=== PATIENT | male | born 1955 | race Two or more races ===

== ENCOUNTER 2024-08-30 10:04 | Inpatient (IN) | payer OTHER, MEDICAID ==
[~2024-08-30] VITALS: Ht 180.3 cm; Wt 65.4 kg
[2024-08-30] MEDS: cloNIDine HCL 0.1 MG TAB PO ONE (10:28)
--- NOTE | 2024-08-30 10:34 | ED.PDOC ---
History of Present Illness HPI Comments 69 y/o M, with a Hx of HTN and left-ankle Sx, presents with c/o left-arm and ankle swelling, today. Patient endorses on unprovoked onset of symptoms that began with left ankle swelling 1x week ago and left arm swelling last night, with no prior Hx of in the past. He endorses on being uncertain whether he was bitten by a venomous insect or exposure to an unknown allergen along with denying any recent trauma or injuries. He denies any numbness, pain, weakness, tingling, fever, chills, or other associated symptoms or modifiers at this time. Chief Complaint: Extremity Swelling Time Seen by MD: 10:20 Primary Care Provider: NONE Reviewed Notes: Nurses Notes, Medications, Allergies Allergies: Coded Allergies: NO KNOWN ALLERGIES (Unverified , 08/30/24) Information Source: Patient Mode of Arrival: Ambulatory Severity: Moderate Timing: Hours Duration: Since onset Prehospital treatment: None Past Medical History PAST MEDICAL HISTORY: HTN Surgical History (Other): left-ankle Sx 20 years ago Family History Family History: Unknown Social History Smoker: Cigarettes Alcohol: Occasionally Drugs: Denies Drug Use Lives In: Home Constitutional: denies: chills, diaphoresis, fatigue, fever, malaise, sweats, weakness, others EENTM: denies: blurred vision, double vision, ear bleeding, ear discharge, ear drainage, ear pain, ear ringing, eye pain, eye redness, hearing loss, mouth pain, mouth swelling, nasal discharge, nose bleeding, nose congestion, nose pain, photophobia, tearing, throat pain, throat swelling, voice changes, others Respiratory: denies: cough, hemoptysis, orthopnea, SOB at rest, shortness of breath, SOB with excertion, stridor, wheezing, others Cardiovascular: denies: chest pain, dizzy spells, diaphoresis, Dyspnea on exertion, edema, irregular heart beat, left arm pain, lightheadedness, palpitations, PND, syncope, others Gastrointestinal: denies: abdomen distended, abdominal pain, blood streaked bowels, constipated, diarrhea, dysphagia, difficulty swallowing, hematemesis, melena, nausea, poor appetite, poor fluid intake, rectal bleeding, rectal pain, vomiting, others Genitourinary: denies: burning, dysuria, flank pain, frequency, hematuria, incontinence, penile discharge, penile sore, pain, testicle pain, testicle swelling, urgency, others Neurological: denies: dizziness, fainting, headache, left sided numbness, left sided weakness, numbness, paresthesia, pre-existing deficit, right sided numbness, right sided weakness, seizure, speech problems, tingling, tremors, weakness, others Musculoskeletal: reports: others (left arm and ankle swelling); denies: back pain, gout, joint pain, joint swelling, muscle pain, muscle stiffness, neck pain Integumetry: denies: bruises, change in color, change in hair/nails, dryness, laceration, lesions, lumps, rash, wounds, others Allergic/Immunocompromised: denies: Difficulty Healing, Frequent Infections, Hives, Itching, others Hematologic/Lymphatic: denies: anemia, blood clots, easy bleeding, easy bruising, swollen glands, others Endocrine: denies: excessive hunger, excessive sweating, excessive thirst, excessive urination, flushing, intolerance to cold, intolerance to heat, unexplained weight gain, unexplained weight loss, others Psychiatric: denies: anxiety, bipolar disorder, depression, hopeless, panic disorder, schizophrenia, sleepless, suicidal, others All Other Systems: Reviewed and Negative Physical Exam General Appearance: Mild Distress HEENT: Normal ENT Inspection, Pharynx Normal, TMs Normal Neck: Full Range of Motion, Non-Tender, Normal, Normal Inspection Respiratory: Chest Non-Tender, Lungs Clear, No Accessory Muscle Use, No Respiratory Distress, Normal Breath Sounds Cardiovascular: No Edema, No JVD, No Murmur, No Gallop, Normal Peripheral Pulses, Regular Rate/Rhythm Breast Exam: Deferred Gastrointestinal: No Organomegaly, Non Tender, No Pulsatile Mass, Normal Bowel Sounds, Soft Genitalia: Deferred Pelvic: Deferred Rectal: Deferred Extremities: No calf tenderness, Normal capillary refill, No pedal edema Musculoskeletal : Location: Left Extremity Location: Arm Apperance: Swelling, Limited ROM, Tenderness: Moderate Neurologic: Alert, integration director II-XII nml as Tested, No Motor Deficits, Normal Affect, Normal Mood, No Sensory Deficits Cerebellar Function: Normal Reflexes: Normal Skin: Dry, Normal Color, Warm Lymphatic: No Adenopathy Was a procedure done? Was a procedure done?: No Differential Dx Considerations may include: left upper DVT, left lower DVT, cellulitis, dermatitis, insect envenomation X-Ray, Labs, Meds, VS Vital Signs Date Time Temp Pulse Resp B/P (MAP) Pulse Ox O2 Delivery O2 Flow Rate FiO2 08/30/24 11:42 97.5 62 16 123/78 (93) 99 97.5 08/30/24 11:28 123/78 08/30/24 10:28 168/109 08/30/24 10:15 Room Air* 0 21 08/30/24 10:06 98.2 64 20 168/109 (128) 99 177/108 (131) Lab Test 08/30/24 10:35 08/30/24 10:30 Range/Units White Blood Count 10.4 4.4-10.8 10^3/uL Red Blood Count 4.20 L 4.5-5.90 10^6/uL Hemoglobin 13.6 13.5-17.5 g/dL Hematocrit 41.0 41.0-53.0 % Mean Corpuscular Volume 97.6 80.0-100.0 fL Mean Corpuscular Hemoglobin 32.3 H 28.0-32.0 pg Mean Corpuscular Hemoglobin Concent 33.1 32.0-36.0 g/dL Red Cell Distribution Width 13.9 11.8-14.3 % Platelet Count 322 140-450 10^3/uL Mean Platelet Volume 7.2 6.9-10.8 fL Neutrophils (%) (Auto) 66.6 37.0-80.0 % Lymphocytes (%) (Auto) 20.4 10.0-50.0 % Monocytes (%) (Auto) 12.5 H 0.0-12.0 % Eosinophils (%) (Auto) 0.3 0.0-7.0 % Basophils (%) (Auto) 0.2 0.0-2.0 % Neutrophils # (Auto) 7.0 1.6-8.6 10 ^3/uL Lymphocytes # (Auto) 2.1 0.4-5.4 10 ^3/uL Monocytes # (Auto) 1.3 0-1.3 10 ^3/uL Eosinophils # (Auto) 0 0-0.8 10 ^3/uL Basophils # (Auto) 0 0-0.2 10 ^3/uL Nucleated Red Blood Cells 0.1 % Erythrocyte Sedimentation Rate 23 H 0-20 mm/hr Sodium Level 138 136-145 mmol/L Potassium Level 3.9 3.5-5.1 mmol/L Chloride Level 106 98-107 mmol/L Carbon Dioxide Level 25 20-31 mmol/L Anion Gap 7 5-15 Blood Urea Nitrogen 15 9-23 mg/dL Creatinine 0.91 0.700-1.30 mg/dL Glomerular Filtration Rate Calc 91 >90 mL/min BUN/Creatinine Ratio 16.5 10.0-20.0 Serum Glucose 92 74-106 mg/dL Calcium Level 10.2 8.7-10.4 mg/dL Urine Color Light-yellow Yellow Urine Clarity Clear Clear Urine pH 6.0 5.0-9.0 Urine Specific [place] 1.018 1.001-1.035 Urine Protein Negative Negative Urine Ketones Negative Negative Urine Blood Negative Negative /uL Urine Nitrite Negative Negative Urine Bilirubin Negative Negative Urine Urobilinogen Normal Negative mg/dL Urine Leukocyte Esterase Negative Negative /uL Urine RBC 2 0 - 3 /hpf Urine WBC 2 0 - 3 /hpf Urine Squamous Epithelial Cells None seen <5 /hpf Urine Bacteria None seen None Seen /hpf Urine Glucose Normal Normal mg/dL Current Medications Medications (Trade) Dose Ordered Sig/[place] Route Start Time Stop Time Status Last Admin Clonidine HCl (Catapres Tablet) 0.2 mg ONCE ONCE PO 08/30/24 10:30 08/30/24 10:31 DC 08/30/24 10:28 PROCEDURE(s): LUDVT - LT Upper DVT Impression: No venous thrombus identified in the LEFT upper extremity vessels evaluated above. At this time, the patient was given clonidine p.o. for the accelerated hypertension The urine test is negative The CBC and chemistry panel are within normal limits The patient is being admitted to the hospitalist We are unaware of why this patient's arm is experiencing significant swelling. Images Reviewed?: Images reviewed and evaluated by me Time of 1ST Reevaluation: 10:50 Reevaluation 1ST: Unchanged Patient Education/Counseling: Diagnosis, Treatment, Prognosis Family Education/Counseling: No Family Present Departure 1 Departure Time of Disposition: 12:24 Impression: Primary Impression: Left arm swelling Additional Impressions: Elevated erythrocyte sedimentation rate Accelerated hypertension Disposition: ADMITTED INPATIENT Admit to: Med Surg Condition: Fair Critical Care Note Critical Care Time?: No Stability Stability form required: Yes Unstable for transfer: ED Physician Assesment (Clinical assesment) Heart Score Heart Score: Heart Score Response (Comments) Value History N/A 0 EKG N/A 0 Age N/A 0 Risk Factors N/A 0 Troponin N/A 0 Total 0 I personally scribed for LOLITA MICHAEL MD ([email or web address]) on 08/30/24 at 10:34. Electronically submitted by Juan Kohler ([email or web address]). I personally scribed for LOLITA MICHAEL MD ([email or web address]) on 08/30/24 at 11:19. Electronically submitted by Juan Kohler ([email or web address]). LOLITA MICHAEL MD Aug 30, 2024 10:34
[2024-08-30 10:50] LABS: Basophils # (auto) 0 10 ^3/uL (0-0.2); Basophils % (auto) 0.2 % (0.0-2.0); Eosinophils # (auto) 0 10 ^3/uL (0-0.8); Eosinophils % (auto) 0.3 % (0.0-7.0); Hemoglobin 13.6 g/dL (13.5-17.5); Lymphocytes # (auto) 2.1 10 ^3/uL (0.4-5.4); Lymphocytes % (auto) 20.4 % (10.0-50.0); Mean Corpuscular Hemoglobin 32.3 pg (28.0-32.0); Mean Corpuscular Hgb Conc. 33.1 g/dL (32.0-36.0); Mean Corpuscular Volume 97.6 fL (80.0-100.0); Monocytes # (auto) 1.3 10 ^3/uL (0-1.3); Monocytes % (auto) 12.5 % (0.0-12.0); Neutrophils % (auto) 66.6 % (37.0-80.0); Nucleated Red Blood Cells % 0.1 %; Platelet Count (auto) 322 10^3/uL (140-450); Red Cell Distribution Width 13.9 % (11.8-14.3); White Blood Cell 10.4 10^3/uL (4.4-10.8)
[2024-08-30 10:58] LABS: Chloride 106 mmol/L (98-107); Potassium 3.9 mmol/L (3.5-5.1); Sodium 138 mmol/L (136-145)
[2024-08-30 10:59] LABS: Anion Gap 7 (5-15); Calcium 10.2 mg/dL (8.7-10.4); Carbon Dioxide 25 mmol/L (20-31)
[2024-08-30 11:04] LABS: BUN/Creatinine Ratio 16.5 (10.0-20.0); Blood Urea Nitrogen 15 mg/dL (9-23); Glucose 92 mg/dL (74-106)
--- NOTE | 2024-08-30 11:07 | DVH ---
LEFT Upper Extremity Venous Duplex Clinical History: left arm swelling Comparison: None Findings: Duplex Doppler evaluation of the venous system of the LEFT lower neck and upper extremity including c olor Doppler and spectral/pulsed waveform analysis was performed. The internal jugular vein demonstrates appropriate compressibility and waveform variability. The subclavian vein is patent on color Doppler evaluation without intraluminal thrombus and demonstra hayden waveform variability. The visualized portion of the brachiocephalic vein is patent on color Doppler evaluation without intr aluminal thrombus and demonstrates waveform variability. The axillary vein demonstrates appropriate compressibility and waveform variability. The brachial veins demonstrate appropriate compressibility and patency on Doppler evaluation. The basilic vein demonstrates appropriate compressibility and patency on Doppler evaluation. The cephalic vein demonstrates appropriate compressibility and patency on Doppler evaluation. Impression: No venous thrombus identified in the LEFT upper extremity vessels evaluated above. If clinical concern/symptoms persist or worsen, short-interval follow-up study is suggested.
[2024-08-30 11:37] LABS: Urine Bacteria None Seen /hpf (None Seen)
[2024-08-30 11:46] LABS: Erythrocyte Sedimentation Rate 23 mm/hr (0-20)
[2024-08-30 12:14] LABS: Urine Blood Negative /uL (Negative); Urine Clarity Clear (Clear); Urine Color Light-Yellow (Yellow); Urine Protein, UAD Negative (Negative); Urine Specific Gravity 1.018 (1.001-1.035); Urine Squamous Epithelial Cell None Seen /hpf (<5); Urine Urobilinogen Normal (Negative); Urine WBC 2 /hpf (0 - 3)
[2024-08-30] MEDS ORDERED: ACETAMINOPHEN 325 MG TAB PO PRN (19:00)
[2024-08-30] MEDS ORDERED: MORPHINE SULFATE INJ 2 MG/ml SYRG IV PRN ×2 (19:00)
[2024-08-30] MEDS ORDERED: NITROGLYCERIN 0.4 MG SL TAB SL PRN (19:00)
[2024-08-30] MEDS: hydroCHLOROthiazide 25 MG TAB PO ONE (19:45)
--- NOTE | 2024-08-30 20:11 | DVHHPRES ---
History of Present Illness Resident Creating Document: ALESSANDRA PALMER RESIDENT Reason for Visit: Left wrist and Ankle swelling History of Present Illness 61-year-old male patient with past medical history of hypertension, recurrent epistaxis and remote drug abuse (cocaine and methamphetamine use, quit 2 years ago, ongoing marijuana and cigarette use) presenting with left ankle and wrist swelling, being left ankle swelling and pain for the past week and the left wrist swelling since yesterday, the swelling is unprovoked at worsens with the physical activity such weight-bearing on these joints. He describes the pain as moderate in the left ankle and leg and soreness in the left wrist, particularly with movement he is unable to make a fist. The patient denies any recent trauma, fever, chills. He has a history of left wrist injury and left ankle surgery from prior accidents. There are no other associated symptoms, including no systemic complaints or swelling in other joints. Cardiovascular: HTN Musculoskeletal: Osteoarthritis Past Medical History Previous ankle surgery Family History: DM, Hypertension Smoke: <1 pack per day ALCOHOL: occassional Drugs: Marijuana Lives: with Family Domestic Violence: Neg Review of Systems Review of Systems Constitutional: No: Fever, Chills, Sweats, Weakness, Malaise, Other Eyes: No: Pain, Vision change, Conjunctivae inflammation, Eyelid inflammation, Other, Redness ENT: No: Ear pain, Ear discharge, Nose pain, Nose discharge, Nose congestion, Mouth pain, Mouth swelling, Throat pain, Throat swelling, Other Respiratory: No Wheezing, Hemoptysis, Pleuritic Pain, Sputum, Wheezing, Other Cardiovascular: No: Chest Pain, Palpitations, Orthopnea, Paroxysmal Noc. Dyspnea, Edema, Lt Headedness, Other Gastrointestinal: No: Nausea, Vomiting, Abdominal Pain, Diarrhea, Constipation, Melena, Hematochezia, Other Musculoskeletal: Yes: left wrist swelling, left ankle swelling, chronic back pain No: other, neck pain, shoulder pain, arm pain Neurological:; No: Weakness, Numbness, Incoordination, Change in speech, Confusion, Seizures Allergies: Coded Allergies: NO KNOWN ALLERGIES (Unverified , 08/30/24) Medications Current Medications Medications Dose Ordered Sig/Berlin Route Start Time Stop Time Status Last Admin Dose Admin Acetaminophen 650 mg Q6HP PRN PO 08/30/24 19:00 Morphine Sulfate 2 mg Q4HPRN PRN IV 08/30/24 19:00 Nitroglycerin 0.4 mg Q5MINP PRN SL 08/30/24 19:00 Morphine Sulfate 2 mg Q30M PRN IV 08/30/24 19:00 Hydrochlorothiazide 25 mg DAILY PO 08/31/24 10:00 UNV Exam Vital Signs Vital Signs Date Time Temp Pulse Resp B/P (MAP) Pulse Ox O2 Delivery O2 Flow Rate FiO2 08/30/24 18:13 98.1 58 16 158/91 (113) 99 98.1 08/30/24 10:15 Room Air* 0 21 Exam Examination General Appearance: Alert, Oriented X3, Cooperative, No acute distress Respiratory: Clear to auscultation, Normal air movement Cardiovascular: Regular rate, Normal S1, Normal S2 Abdominal: Normal bowel sounds Extremities: edema in the left wrist and left ankle, No cyanosis, normal pulses Skin: dry skin in lower extremities, No rashes, No breakdown Neuro: Normal gait, Normal speech, Strength at 5/5 X4 ext, Normal tone, Sensation intact, Cranial nerves 3-12 NL, Reflexes 2+ Psych/Mental Status: Mental status NL, Mood NL Labs/Xrays Labs Test 08/30/24 10:35 08/30/24 10:30 Range/Units White Blood Count 10.4 4.4-10.8 10^3/uL Red Blood Count 4.20 L 4.5-5.90 10^6/uL Hemoglobin 13.6 13.5-17.5 g/dL Hematocrit 41.0 41.0-53.0 % Mean Corpuscular Volume 97.6 80.0-100.0 fL Mean Corpuscular Hemoglobin 32.3 H 28.0-32.0 pg Mean Corpuscular Hemoglobin Concent 33.1 32.0-36.0 g/dL Red Cell Distribution Width 13.9 11.8-14.3 % Platelet Count 322 140-450 10^3/uL Mean Platelet Volume 7.2 6.9-10.8 fL Neutrophils (%) (Auto) 66.6 37.0-80.0 % Lymphocytes (%) (Auto) 20.4 10.0-50.0 % Monocytes (%) (Auto) 12.5 H 0.0-12.0 % Eosinophils (%) (Auto) 0.3 0.0-7.0 % Basophils (%) (Auto) 0.2 0.0-2.0 % Neutrophils # (Auto) 7.0 1.6-8.6 10 ^3/uL Lymphocytes # (Auto) 2.1 0.4-5.4 10 ^3/uL Monocytes # (Auto) 1.3 0-1.3 10 ^3/uL Eosinophils # (Auto) 0 0-0.8 10 ^3/uL Basophils # (Auto) 0 0-0.2 10 ^3/uL Nucleated Red Blood Cells 0.1 % Erythrocyte Sedimentation Rate 23 H 0-20 mm/hr Sodium Level 138 136-145 mmol/L Potassium Level 3.9 3.5-5.1 mmol/L Chloride Level 106 98-107 mmol/L Carbon Dioxide Level 25 20-31 mmol/L Anion Gap 7 5-15 Blood Urea Nitrogen 15 9-23 mg/dL Creatinine 0.91 0.700-1.30 mg/dL Glomerular Filtration Rate Calc 91 >90 mL/min BUN/Creatinine Ratio 16.5 10.0-20.0 Serum Glucose 92 74-106 mg/dL Calcium Level 10.2 8.7-10.4 mg/dL Urine Color Light-yellow Yellow Urine Clarity Clear Clear Urine pH 6.0 5.0-9.0 Urine Specific [place] 1.018 1.001-1.035 Urine Protein Negative Negative Urine Ketones Negative Negative Urine Blood Negative Negative /uL Urine Nitrite Negative Negative Urine Bilirubin Negative Negative Urine Urobilinogen Normal Negative mg/dL Urine Leukocyte Esterase Negative Negative /uL Urine RBC 2 0 - 3 /hpf Urine WBC 2 0 - 3 /hpf Urine Squamous Epithelial Cells None seen <5 /hpf Urine Bacteria None seen None Seen /hpf Urine Glucose Normal Normal mg/dL Assessment/Plan Assessment/Plan #Left wrist swelling likely due to post-traumatic osteoarthritis, rule out acute gout attack or pseudogout #Upper extremity DVT was ruled out - Admit to telemetry - left wrist x-ray 3 view - left ankle x-ray 3 view - ibuprofen 600 mg PRN - uric acid levels #Hypertensive urgency -clonidine once -hydrochlorothiazide 25 mg p.o. daily #Nicotine dependency -smoking cessation counseling -consider start nicotine patches #History of drug abuse #Methamphetamine use #Cocaine use -He quit 2 years ago -UDS Case discussed with goals of care discussed with the patient for 31 minutes code status: full code Plan discussed with: Patient My Orders Orders - ALESSANDRA PALMER RESIDENT Procedure Category Date Status Time Admit ADMIT 08/30/24 Transmitted 18:59 Allergies JAD 08/30/24 In Process 18:59 Code Status CODE 08/30/24 Transmitted 18:59 Complete Blood Count LAB 08/31/24 Verified 04:00 Comprehensive LAB 08/31/24 Verified Metabolic Panel 04:00 Npo (Nothing By DIET 08/31/24 Transmitted Mouth) Diet Breakfast Acetaminophen Tablet PHA 08/30/24 In Process (Tylenol Tablet) 19:00 Morphine Sulfate PHA 08/30/24 In Process Injection 19:00 Nitroglycerin PHA 08/30/24 In Process Sublingual (Ntrostat 19:00 Morphine Sulfate PHA 08/30/24 In Process Injection 19:00 Oxygen By Nasal RT 08/30/24 Transmitted Cannula 18:59 Stat Ekg For Chest JAD 08/30/24 In Process Pain 18:59 Notify Of Changes [facility] 08/30/24 In Process From Base 18:59 Hydroelectric Plant Electrician For [facility] 08/30/24 In Process 24 Hours 18:59 Emergency Dysrhythmia [facility] 08/30/24 In Process Protocol 18:59 Rhythm Strips Once [facility] 08/30/24 In Process Every Shift 18:59 Drug Screen LAB 08/30/24 Logged 19:08 Thyroid Stimulating LAB 08/30/24 Logged Hormone 19:08 Lactic Acid W/ Reflex LAB 08/30/24 Logged Order 19:08 Lactate Dehydrogenase LAB 08/30/24 Logged 19:08 L Wrist 3+ View Xray XY 08/30/24 Logged 19:40 L Ankle 3 View XY 08/30/24 Logged 19:40 Vitamin B12 LAB 08/30/24 Logged 19:40 Vitamin D 25-Hydroxy LAB 08/30/24 Logged D2 + D3 19:40 Hemoglobin A1c LAB 08/30/24 Logged 19:40 Chest Portable XY 08/30/24 Logged 19:40 Hydrochlorothiazide PHA 08/31/24 Logged Tablet (Hydrochlorot 10:00 Hydrochlorothiazide PHA 08/30/24 Logged Tablet (Hydrochlorot 19:45 C-Reactive Protein LAB 08/30/24 Logged 19:48 Prothrombin Time W/ LAB 08/30/24 Logged INR 19:48 Date of Service: Aug 30, 2024 Billing Provider: NII ORTIZ MD Common Visit Codes: 32811-[id number] INP/OBS CARE (HIGH) Secondary Visit Codes: 41315-[id number] CARE PLAN 30 MINUTES ALESSANDRA PALMER RESIDENT Aug 30, 2024 20:11 NII ORTIZ MD Aug 30, 2024 20:23
[2024-08-30 20:18] LABS: Thyroid Stimulating Hormone 3.63 uIU/mL (0.55-4.78)
--- NOTE | 2024-08-30 20:23 | DVH ---
EXAMINATION: AP portable chest radiograph CLINICAL HISTORY: ro PNA COMPARISON: None TECHNIQUE: AP chest x-ray FINDINGS: Negative AP chest. No dominant consolidations. The costophrenic angles are clear. No sizable pleural effusions or pneumo thorax identified. The cardiomediastinal silhouette appears within normal limits given technique. IMPRESSION: 1. Negative AP chest.
--- NOTE | 2024-08-30 20:23 | DVH ---
CLINICAL INDICATION: r/o severe osteoarthritis TECHNIQUE: 3 radiographic views of the left ankle were obtained. Comparison: None FINDINGS/IMPRESSION: There is no evidence of acute fracture or dislocation. Screw fixation of the medial malleolus The visualized joint space is well maintained. The alignment is anatomical. There is no radiopaque foreign body. Mild ankle soft tissue edema.
--- NOTE | 2024-08-30 20:30 | DVH ---
CLINICAL INDICATION: ro severe osteoarthritis TECHNIQUE: 3 radiographic views of the left wrist were obtained. Comparison: None FINDINGS/IMPRESSION: There is lucency through the distal triquetrum. Correlate for nondisplaced fracture. There appears t o be old fracture deformity of the scaphoid. Moderate degenerative changes of the radiocarpal joint w ith joint space narrowing sclerosis and subchondral cystic changes. There is resorption of the distal ulna. There is volar tilt of the lunate on the lateral view consistent with volar intercalated segmental in stability. Mild wrist and dorsal hand soft tissue edema
[2024-08-30 20:53] LABS: Amphetamine Screen, Urine Neg (NEGATIVE); Barbiturate Scree,Urine Neg (NEGATIVE); Benzodiazephine Screen, Urine Neg (NEGATIVE); Cannabinoid Screen, Urine Pos (NEGATIVE); Cocaine Screen, Urine Neg (NEGATIVE); Opiate Scree,Urine Neg (NEGATIVE); Phencyclidine Screen, Urine Pos (NEGATIVE)
[2024-08-30 21:30] VITALS: BP 159/92; PULSE 57; RESP 20; TEMP 98.8; O2SAT 99
[2024-08-30 23:30] VITALS: PULSE 57; RESP 20; O2SAT 99
[2024-08-31 00:31] LABS: INR 0.99 (0.9-1.15); Prothrombin Time 10.5 sec (9.3-11.8)
[2024-08-31 01:00] VITALS: BP 156/74; PULSE 59; RESP 20; TEMP 98.3; O2SAT 97
[2024-08-31] MEDS: IBUPROFEN 400 MG TAB PO PRN (01:12)
[2024-08-31 05:00] VITALS: BP 143/69; PULSE 82; RESP 19; TEMP 97.5; O2SAT 99
[2024-08-31 08:00] VITALS: PULSE 50; RESP 14; O2SAT 100
[2024-08-31] MEDS: hydroCHLOROthiazide 25 MG TAB PO SCH (08:57)
[2024-08-31 11:09] LABS: Alanine Aminotransferase 18 U/L (7-40); Albumin 4.1 g/dL (3.2-4.8); Alkaline Phosphatase 79 U/L (46-116); Anion Gap 8 (5-15); Aspartate Aminotransferase 16 U/L (13-40); BUN/Creatinine Ratio 13.2 (10.0-20.0); Bilirubin, Total 0.5 mg/dL (0.2-1.0); Blood Urea Nitrogen 12 mg/dL (9-23); Calcium 10.1 mg/dL (8.7-10.4); Carbon Dioxide 26 mmol/L (20-31); Chloride 106 mmol/L (98-107); Sodium 140 mmol/L (136-145); Total Protein 7.1 g/dL (5.7-8.2)
[2024-08-31 11:12] LABS: Basophils # (auto) 0 10 ^3/uL (0-0.2); Basophils % (auto) 0.5 % (0.0-2.0); Eosinophils # (auto) 0.1 10 ^3/uL (0-0.8); Hematocrit 39.3 % (41.0-53.0); Hemoglobin 13.3 g/dL (13.5-17.5); Lymphocytes # (auto) 2.2 10 ^3/uL (0.4-5.4); Mean Corpuscular Hemoglobin 32.7 pg (28.0-32.0); Mean Corpuscular Volume 96.2 fL (80.0-100.0); Monocytes # (auto) 0.5 10 ^3/uL (0-1.3); Monocytes % (auto) 6.9 % (0.0-12.0); Neutrophils # (auto) 4.3 10 ^3/uL (1.6-8.6); Neutrophils % (auto) 59.6 % (37.0-80.0); Nucleated Red Blood Cells % 0.1 %; Platelet Count (auto) 325 10^3/uL (140-450); Red Blood Cells 4.08 10^6/uL (4.5-5.90); Red Cell Distribution Width 13.7 % (11.8-14.3); White Blood Cell 7.2 10^3/uL (4.4-10.8)
[2024-08-31 11:19] LABS: Glucose 120 mg/dL (74-106)
[2024-08-31] MEDS ORDERED: IBUP-1453 PO (12:07)
--- NOTE | 2024-08-31 12:52 | DVHDSRES ---
Discharge Summary Date of Admission Resident Creating Document: ALESSANDRA PALMER RESIDENT Aug 30, 2024 at 18:59 Date of Discharge: Aug 31, 2024 Admitting Diagnosis #Left wrist swelling likely due to post-traumatic osteoarthritis, rule out acute gout attack #Upper extremity DVT Labs/Diagnostic Data: Laboratory Results Test 08/31/24 10:25 08/30/24 23:32 08/30/24 19:40 08/30/24 10:35 White Blood Count 7.2 10^3/uL (4.4-10.8) Red Blood Count 4.08 10^6/uL (4.5-5.90) Hemoglobin 13.3 g/dL (13.5-17.5) Hematocrit 39.3 % (41.0-53.0) Mean Corpuscular Volume 96.2 fL (80.0-100.0) Mean Corpuscular Hemoglobin 32.7 pg (28.0-32.0) Mean Corpuscular Hemoglobin Concent 34.0 g/dL (32.0-36.0) Red Cell Distribution Width 13.7 % (11.8-14.3) Platelet Count 325 10^3/uL (140-450) Mean Platelet Volume 7.9 fL (6.9-10.8) Neutrophils (%) (Auto) 59.6 % (37.0-80.0) Lymphocytes (%) (Auto) 31.0 % (10.0-50.0) Monocytes (%) (Auto) 6.9 % (0.0-12.0) Eosinophils (%) (Auto) 2.0 % (0.0-7.0) Basophils (%) (Auto) 0.5 % (0.0-2.0) Neutrophils # (Auto) 4.3 10 ^3/uL (1.6-8.6) Lymphocytes # (Auto) 2.2 10 ^3/uL (0.4-5.4) Monocytes # (Auto) 0.5 10 ^3/uL (0-1.3) Eosinophils # (Auto) 0.1 10 ^3/uL (0-0.8) Basophils # (Auto) 0 10 ^3/uL (0-0.2) Nucleated Red Blood Cells 0.1 % Sodium Level 140 mmol/L (136-145) Potassium Level 4.0 mmol/L (3.5-5.1) Chloride Level 106 mmol/L (98-107) Carbon Dioxide Level 26 mmol/L (20-31) Anion Gap 8 (5-15) Blood Urea Nitrogen 12 mg/dL (9-23) Creatinine 0.91 mg/dL (0.700-1.30) Glomerular Filtration Rate Calc 91 mL/min (>90) BUN/Creatinine Ratio 13.2 (10.0-20.0) Serum Glucose 120 mg/dL (74-106) Calcium Level 10.1 mg/dL (8.7-10.4) Total Bilirubin 0.5 mg/dL (0.2-1.0) Aspartate Amino Transferase (AST) 16 U/L (13-40) Alanine Aminotransferase (ALT) 18 U/L (7-40) Alkaline Phosphatase 79 U/L (46-116) Total Protein 7.1 g/dL (5.7-8.2) Albumin 4.1 g/dL (3.2-4.8) Prothrombin Time 10.5 sec (9.3-11.8) Prothrombin Time INR 0.99 (0.9-1.15) Vitamin B12 Level 543 pg/mL (211-911) Hemoglobin A1c 5.2 % A1C (<5.7) Lactic Acid Level 1.9 mmol/L (0.4-2.0) Uric Acid 6.2 mg/dL (3.7-9.2) Lactate Dehydrogenase 156 U/L (120-246) C-Reactive Protein High Sensitivity 4.18 mg/dL (<1.0) Thyroid Stimulating Hormone (TSH) 3.63 uIU/mL (0.55-4.78) Erythrocyte Sedimentation Rate 23 mm/hr (0-20) Test 08/30/24 10:30 Urine Color Light-yellow (Yellow) Urine Clarity Clear (Clear) Urine pH 6.0 (5.0-9.0) Urine Specific [place] 1.018 (1.001-1.035) Urine Protein Negative (Negative) Urine Ketones Negative (Negative) Urine Blood Negative /uL (Negative) Urine Nitrite Negative (Negative) Urine Bilirubin Negative (Negative) Urine Urobilinogen Normal mg/dL (Negative) Urine Leukocyte Esterase Negative /uL (Negative) Urine RBC 2 /hpf (0 - 3) Urine WBC 2 /hpf (0 - 3) Urine Squamous Epithelial Cells None seen /hpf (<5) Urine Bacteria None seen /hpf (None Seen) Urine Glucose Normal mg/dL (Normal) Urine Opiates Screen Neg (NEGATIVE) Urine Fentanyl Screen Neg (NEGATIVE) Urine Barbiturates Screen Neg (NEGATIVE) Urine Phencyclidine Screen Pos (NEGATIVE) Urine Amphetamines Screen Neg (NEGATIVE) Urine Benzodiazepines Screen Neg (NEGATIVE) Urine Cocaine Screen Neg (NEGATIVE) Urine Cannabinoids Screen Pos (NEGATIVE) Other Laboratory Tests 08/31/24 10:25 Brief Hx & Hospital Course: HPI The patient is a 69-year-old male with a past medical history significant for hypertension, recurrent epistaxis, and remote substance use (cocaine and methamphetamine, quit two years ago), who presented with left wrist and ankle swelling and pain. He is an active smoker (1 pack/day) and continues to use marijuana. The patient reported that the pain in his left wrist began approximately one week prior, progressively worsening in intensity and interfering with his ability to make a fist. Similarly, the left ankle swelling and pain developed around the same time without a clear provoking event. He described the pain as persistent and exacerbated by movement or weight-bearing, particularly in the left ankle. On arrival, he denied any systemic symptoms, including fever, chills, night sweats, or malaise. He also denied any recent trauma, falls, or injuries involving the left wrist or ankle. The patient reported no pain or swelling in other joints. There was no significant past history of arthritis, gout, or other rheumatologic conditions. His family history is notable for hypertension and diabetes but no known connective tissue disorders. Hospital course: Upon admission, the patient underwent a thorough evaluation, including imaging and laboratory testing, to assess for potential causes of his symptoms. Left wrist X-Ray revealed a non-displaced triquetrum fracture, which is an uncomplicated injury that typically heals with immobilization and conservative management.The patient was managed conservatively for his wrist fracture. A bandage was applied to immobilize the joint, and he was educated on the importance of keeping the wrist immobilized to ensure proper healing.For his left ankle pain and swelling, symptomatic treatment included elevation, rest, and NSAIDs to reduce inflammation. No invasive interventions were necessary as there was no structural damage identified on imaging. He was started on acetaminophen and NSAIDs (e.g., ibuprofen) for pain control. During hospitalization, the patient demonstrated gradual improvement in his symptoms. Swelling in the left ankle decreased, and his wrist pain was well-controlled with analgesics. His vital signs remained stable throughout his stay, and he did not develop any signs of systemic infection or worsening symptoms.he patient received counseling regarding his smoking habits and drug abuse cessation, emphasizing the potential impact of nicotine and drugs. Disposition: Patient stable for dicharge to home. Case discussed with Goals of care discussed with the patient for 44 minutes. Operations or Procedures [place] [id number] Ph: [phone] DIAGNOSTIC IMAGING Diagnostic Imaging Report : [id number] Signed PATIENT: MERY CRUZ ACCT: [id number] UNIT: [id number] : 1955 LOC: ER ROOM / BED: / AGE / SEX: 69 / M ADM STATUS: REG ER SERVICE 1026 ORDERING PHYSICIAN: LOLITA MICHAEL MD PROCEDURE(s): LUDVT - LT Upper DVT REASON: left arm swelling ORDER NUMBER(s): [id number], ACCESSION NUMBER(s): [id number] LEFT Upper Extremity Venous Duplex Clinical History: left arm swelling Comparison: None Findings: Duplex Doppler evaluation of the venous system of the LEFT lower neck and upper extremity including color Doppler and spectral/pulsed waveform analysis was performed. The internal jugular vein demonstrates appropriate compressibility and waveform variability. The subclavian vein is patent on color Doppler evaluation without intraluminal thrombus and demonstrates waveform variability. The visualized portion of the brachiocephalic vein is patent on color Doppler evaluation without intraluminal thrombus and demonstrates waveform variability. The axillary vein demonstrates appropriate compressibility and waveform variability. The brachial veins demonstrate appropriate compressibility and patency on Doppler evaluation. The basilic vein demonstrates appropriate compressibility and patency on Doppler evaluation. The cephalic vein demonstrates appropriate compressibility and patency on Doppler evaluation. Impression: No venous thrombus identified in the LEFT upper extremity vessels evaluated above. If clinical concern/symptoms persist or worsen, short-interval follow-up study is suggested. ATED BY: BENTLEY RODRIGUEZ MD DICTATED DATE/TIME: 08/30/24 1105 SIGNED BY: BENTLEY RODRIGUEZ MD SIGNED DATE/TIME: 08/30/24 1105 CC: [address] [id number] Ph: [phone] DIAGNOSTIC IMAGING Diagnostic Imaging Report : [id number] Signed PATIENT: MERY CRUZ ACCT: [id number] UNIT: [id number] : 1955 LOC: OVERFLOW ROOM / BED: [address] [place] [address] / A AGE / SEX: 69 / M ADM STATUS: ADM IN SERVICE 39 ORDERING PHYSICIAN: ALESSANDRA PALMER RESIDENT PROCEDURE(s): LANKL - L ANKLE 3 VIEW REASON: r/o severe osteoarthritis ORDER NUMBER(s): [id number], ACCESSION NUMBER(s): [id number] CLINICAL INDICATION: r/o severe osteoarthritis TECHNIQUE: 3 radiographic views of the left ankle were obtained. Comparison: None FINDINGS/IMPRESSION: There is no evidence of acute fracture or dislocation. Screw fixation of the medial malleolus The visualized joint space is well maintained. The alignment is anatomical. There is no radiopaque foreign body. Mild ankle soft tissue edema. ATED BY: VIOLETA MARTÍNEZ DO DICTATED DATE/TIME: 08/30/242020 SIGNED BY: VIOLETA MARTÍNEZ DO SIGNED DATE/TIME: 08/30/242020 CC: [place] [id number] Ph: [phone] DIAGNOSTIC IMAGING Diagnostic Imaging Report : [id number] Signed PATIENT: MERY CRUZ ACCT: [id number] UNIT: [id number] : 1955 LOC: OVERFLOW ROOM / BED: [address] [place] [address] A AGE / SEX: 69 / M ADM STATUS: ADM IN SERVICE 39 ORDERING PHYSICIAN: ALESSANDRA PALMER RESIDENT PROCEDURE(s): LWRI - L WRIST 3+ VIEW XRAY REASON: ro severe osteoarthritis ORDER NUMBER(s): [id number], ACCESSION NUMBER(s): [id number] CLINICAL INDICATION: ro severe osteoarthritis TECHNIQUE: 3 radiographic views of the left wrist were obtained. Comparison: None FINDINGS/IMPRESSION: There is lucency through the distal triquetrum. Correlate for nondisplaced fracture. There appears to be old fracture deformity of the scaphoid. Moderate degenerative changes of the radiocarpal joint with joint space narrowing sclerosis and subchondral cystic changes. There is resorption of the distal ulna. There is volar tilt of the lunate on the lateral view consistent with volar intercalated segmental instability. Mild wrist and dorsal hand soft tissue edema ATED BY: VIOLETA MARTÍNEZ DO DICTATED DATE/TIME: 08/30/242026 SIGNED BY: VIOLETA MARTÍNEZ DO SIGNED DATE/TIME: 08/30/242026 CC: Condition at Discharge: Fair Final Diagnosis/Problems List distal triquetrum nondisplaced fracture. Mild ankle soft tissue edema. Drug abuse , positive for phenylcyclidine Discharge Disposition: Home SNF Discharge Will this Physician continue t: No Discharge Instruct/Medications Diet: Cardiac 2g Na,low cholest Activity: Light activity Follow Up/Referral: follow up with pcp within 1 to 2 weeks Medications: script to pharmacy Discharge Statement: "Patient was advised to return to the ER or call 911 if any headaches, dizziness, shortness of breath, chest pain, abdominal pain, bleeding, fevers, or worsening of medical condition. Patient was counseled about treatment plan, medications, possible side effects, patientverbalized understanding. All questions were answered to the best of my ability. This discharge took greater then 30 minutes in planning, reviewing documentation, counseling the patient, and discussing with other team members." ASSESSMENT ASSESSMENT Assessment volar intercalated segmental instability. distal triquetrum nondisplaced fracture. Mild ankle soft tissue edema. Drug abuse , positive for phenylcyclidine Date of Service: Aug 31, 2024 Billing Provider: NII ORTIZ MD Common Visit Codes: 97568-NMT/OBS DISCH DAY >30min ALESSANDRA PALMER RESIDENT Aug 31, 2024 12:52 NII ORTIZ MD Sep 01, 2024 11:44
[2024-08-31 13:02] VITALS: BP 123/84; PULSE 50; RESP 14; TEMP 97.7; O2SAT 100
[2024-09-04 15:06] LABS: Vitamin D 25-Hydroxy 26 ng/mL (.); Vitamin D-2 25-Hydroxy <1.0 ng/mL (.); Vitamin D-3 25-Hydroxy 26 ng/mL (.)
== END 2024-08-31 14:22 | disposition home or self-care (01) | DRG 563 ==
LOC: ER 10:04 → OVERFLOW 18:59 → EAST 22:22
PROVIDERS: ATTEND Emergency Medicine
DX: S62.115A Nondisplaced fracture of triquetrum [cuneiform] bone, left wrist, initial encounter for closed fracture (principal); I16.0 Hypertensive urgency; F17.210 Nicotine dependence, cigarettes, uncomplicated; R70.0 Elevated erythrocyte sedimentation rate; F14.90 Cocaine use, unspecified, uncomplicated; F15.90 Other stimulant use, unspecified, uncomplicated; X58.XXXA Exposure to other specified factors, initial encounter; Z82.49 Family history of ischemic heart disease and other diseases of the circulatory system; Z83.3 Family history of diabetes mellitus; Y93.89 Activity, other specified; Y92.89 Other specified places as the place of occurrence of the external cause; Y99.8 Other external cause status
CPT/HCPCS: 36415; 71045; 73110; 73610; 80048; 80053; 80307; 81001; 82306; 82607; 83036; 83605; 83615; 84443; 84550; 85025; 85610; 85652; 86141; 93971; G0378

== ENCOUNTER 2024-09-03 21:16 | Emergency (ER) | payer OTHER, MEDICAID ==
[~2024-09-03] VITALS: Ht 157.5 cm; Wt 64.3 kg
[~2024-09-03 21:16] MED LIST: IBUP-1453 PO
--- NOTE | 2024-09-03 21:53 | ED.PDOC ---
Back pain HPI HPI Comments This is a 69-year-old male presents to the ED chief complaint left hand pain patient states was recently here discharged was here for 24 hour hold he states continued left hand pain he notes no pain medicine was prescribed for him on discharge in his requesting pain medication at this time. Denies any new injury numbness or weakness. Patient hypertensive on triage. States history of high blood pressure however has been off his medications for several weeks. Denies chest pain, headache, shortness of breath, difficulty breathing, slurred speech, numbness or weakness, or headache. Chief Complaint: Upper Extremity Time Seen by MD: 21:32 Primary Care Provider: NONE Reviewed Notes: Medications, Allergies Allergies: Coded Allergies: NO KNOWN ALLERGIES (Unverified , 08/30/24) Home Meds Active Scripts Lisinopril (Lisinopril) 20 Mg Tab, 1 TAB PO DAILY for 14 Days, #14 TAB Prov:KYLEIGH LOW 09/04/24 Hydrocodone-Acetaminophen (Hydrocodone Bitartrate/AC 5-325 mg) 1 Tab Tab, 1 TAB PO Q8HP PRN for 3 Days, #9 TAB Prov:CHARLIE JACKSON MD 09/03/24 Ibuprofen (Ibuprofen) 400 Mg Tab, 400 MG PO Q8HPRN PRN for 10 Days, #30 TAB Prov:ASH REAGAN RESIDENT 08/31/24 Information Source: Patient Mode of Arrival: Wheelchair Past Medical History PAST MEDICAL HISTORY: HTN Family History Family History: Unknown Social History Smoker: Cigarettes Alcohol: Occasionally Drugs: Denies Drug Use Lives In: Home Constitutional: denies: chills, diaphoresis, fatigue, fever, malaise, sweats, weakness, others EENTM: denies: blurred vision, double vision, ear bleeding, ear discharge, ear drainage, ear pain, ear ringing, eye pain, eye redness, hearing loss, mouth pain, mouth swelling, nasal discharge, nose bleeding, nose congestion, nose pain, photophobia, tearing, throat pain, throat swelling, voice changes, others Respiratory: denies: cough, hemoptysis, orthopnea, SOB at rest, shortness of breath, SOB with excertion, stridor, wheezing, others Cardiovascular: denies: chest pain, dizzy spells, diaphoresis, Dyspnea on exertion, edema, irregular heart beat, left arm pain, lightheadedness, palpitations, PND, syncope, others Gastrointestinal: denies: abdomen distended, abdominal pain, blood streaked bowels, constipated, diarrhea, dysphagia, difficulty swallowing, hematemesis, melena, nausea, poor appetite, poor fluid intake, rectal bleeding, rectal pain, vomiting, others Genitourinary: denies: burning, dysuria, flank pain, frequency, hematuria, incontinence, penile discharge, penile sore, pain, testicle pain, testicle swelling, urgency, others Neurological: denies: dizziness, fainting, headache, left sided numbness, left sided weakness, numbness, paresthesia, pre-existing deficit, right sided numbness, right sided weakness, seizure, speech problems, tingling, tremors, weakness, others Musculoskeletal: reports: others (Pain left hand); denies: back pain, gout, joint pain, joint swelling, muscle pain, muscle stiffness, neck pain Integumetry: denies: bruises, change in color, change in hair/nails, dryness, laceration, lesions, lumps, rash, wounds, others Allergic/Immunocompromised: denies: Difficulty Healing, Frequent Infections, Hives, Itching, others Hematologic/Lymphatic: denies: anemia, blood clots, easy bleeding, easy bruising, swollen glands, others Endocrine: denies: excessive hunger, excessive sweating, excessive thirst, excessive urination, flushing, intolerance to cold, intolerance to heat, unexplained weight gain, unexplained weight loss, others Psychiatric: denies: anxiety, bipolar disorder, depression, hopeless, panic disorder, schizophrenia, sleepless, suicidal, others Physical Exam General Appearance: No Apparent Distress, Normal HEENT: Pharynx Normal Neck: Full Range of Motion, Non-Tender Respiratory: Lungs Clear, No Respiratory Distress, Normal Breath Sounds Cardiovascular: No Murmur, Normal Peripheral Pulses, Regular Rate/Rhythm Breast Exam: Deferred Gastrointestinal: Non Tender, Soft Genitalia: Deferred Pelvic: Deferred Rectal: Deferred Extremities: Normal capillary refill, Normal inspection, Normal range of motion, Non-tender, No pedal edema Musculoskeletal : Location: Left Extremity Location: Hand (Moderate edema dorsal aspect of left hand and wrist. Tenderness on Palpation. Sensory strength and motion intact cap refills less than 3 seconds. Range of motion with moderate discomfort. 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 Was a procedure done?: No Back Pain Differential Dx Differential Diagnosis: Fracture, Musculoskeletal Pain X-Ray, Labs, Meds, VS Vital Signs Date Time Temp Pulse Resp B/P (MAP) Pulse Ox O2 Delivery O2 Flow Rate FiO2 09/04/24 03:00 170/99 (122) 09/04/24 02:20 187/109 09/04/24 01:55 98.1 61 18 187/109 (135) 98 98.1 09/04/24 01:55 61 18 98 Room Air 09/03/24 21:30 98.9 91 18 153/105 (121) 99 Current Medications Medications (Trade) Dose Ordered Sig/[place] Route Start Time Stop Time Status Last Admin Oxycodone/ Acetaminophen (Percocet 5/ 325MG Tablet) 2 tab ONCE ONCE PO 09/03/24 21:45 09/03/24 21:46 DC 09/04/24 02:19 Ketorolac Tromethamine (Toradol Injection) 60 mg ONCE ONCE IM 09/03/24 21:45 09/03/24 21:46 DC 09/04/24 02:20 Clonidine HCl (Catapres Tablet) 0.2 mg ONCE ONCE PO 09/04/24 02:00 09/04/24 02:01 DC 09/04/24 02:20 X-Ray, Labs, Meds, VS Comment Script [place]. Advised patient not to take with alcohol or drive while on med ications. Advised continue prescription of ibuprofen. Heat in sling for comfort, advised on rice. He is to follow up with his PCP in 2-3 days referral for ortho. ER return precautions given patient indicated understanding and agrees with discharge plan of care. HTN- patient's blood pressure upon discharge after clonidine 0.2 mg 170/99 prescription of the patient's lisinopril 20 mg daily sent to his pharmacy. Patient denies chest pain, shortness of breath, difficulty breathing, headache, slurred speech, focal neuro deficits. Patient requesting discharge at this time. Time of 1ST Reevaluation: 21:52 Reevaluation 1ST: Improved Patient Education/Counseling: Diagnosis, Treatment, Prognosis, Need For Follow Up Family Education/Counseling: Diagnosis, Treatment, Prognosis, Need For Follow Up Departure 1 Departure Time of Disposition: 21:52 Impression: Primary Impression: Fracture of triquetrum of left wrist, closed Qualified Codes: S62.115D - Nondisplaced fracture of triquetrum [cuneiform] bone, left wrist, subsequent encounter for fracture with routine healing Additional Impression: HTN (hypertension), benign Disposition: 01 HOME / SELF CARE / HOMELESS Condition: Stable e-Prescriptions Lisinopril (Lisinopril) 20 Mg Tab 1 TAB PO DAILY for 14 Days, #14 TAB Prov: KYLEIGH LOW 09/04/24 Hydrocodone-Acetaminophen (Hydrocodone Bitartrate/AC 5-325 mg) 1 Tab Tab 1 TAB PO Q8HP PRN for 3 Days, #9 TAB Prov: CHARLIE JACKSON MD 09/03/24 Discharged With: Friend Critical Care Note Critical Care Time?: No Stability Stability form required: No KYLEIGH LOW Sep 03, 2024 21:53
[2024-09-03] MEDS ORDERED: HYDR-4902 PO (22:12)
[2024-09-04] MEDS ORDERED: LISI20TA56 PO (01:54)
[2024-09-04 01:55] VITALS: PULSE 61; RESP 18; TEMP 98.1; O2SAT 98
[2024-09-04] MEDS: OXYCODONE W/ ACETAMINOPHEN 5/325MG TABLET PO ONE (02:19)
[2024-09-04] MEDS: KETOROLAC TROMETH 60MG/2ML VIAL IM ONE (02:20)
[2024-09-04] MEDS: cloNIDine HCL 0.1 MG TAB PO ONE (02:20)
[2024-09-04 03:00] VITALS: BP 170/99
== END 2024-09-04 03:08 | disposition home or self-care (01) ==
LOC: ER 21:16
DX: S62.112A Displaced fracture of triquetrum [cuneiform] bone, left wrist, initial encounter for closed fracture (principal); I10 Essential (primary) hypertension; F17.210 Nicotine dependence, cigarettes, uncomplicated; Z79.899 Other long term (current) drug therapy; X58.XXXA Exposure to other specified factors, initial encounter; Y93.89 Activity, other specified; Y92.89 Other specified places as the place of occurrence of the external cause; Y99.8 Other external cause status
CPT/HCPCS: 96372; 99283; J1885